=== PATIENT | female | born 1970 | race Caucasian/White ===

== ENCOUNTER 2017-05-29 19:47 | Emergency (ER) | payer OTHER ==
[~2017-05-29] VITALS: Ht 167.6 cm; Wt 59.0 kg
[~2017-05-29 19:47] MED LIST: ? ANTIDEPRESSANT; AZITHROMYCIN 2250 MG PO; BENADRYL25 MG PO; CELEXA 20 MG TA20 M1 PO; CELEXA20 MG PO; CELEXA40 MG; CIPROFLOXIN HC2.5 M1 OPHTHALMIC; FLEXERIL PO; HYDROCODON-ACE1 EAC7 PO; HYDROCODONE-AP1 EAC6 PO; HYDROXYZINE HCL25 M2 GT; HYDROXYZINE HCL25 M2 PO; KEFLEX500 MG PO; LORTABELXR PO; MEDROLDOSEPACK PO; MOBIC7.5 M1 PO; NAPROSYN500 MG PO; NOHOMEMEDICATIONS; NORCO 5-325 TA1 EACH PO; PENICILLIN V P500 MG PO; PEPCID AC20 M1 PO; PERCOCET 5-3251 EACH PO; PREDNISONE 20 M20 M1 PO; PROMETHAZINE D480 ML PO; PROMETHAZINE-C120 ML PO; ROBAXIN 750 MG750 M1 PO; ROBAXIN500 MG PO; TESSALON PERLE100 MG PO; TRAMADOL; TRAMADOL 50 MG50 MG PO; ULTRAM50 MG PO; VALIUM5 MG; VEETIDS 500500 MG PO; VENTOLIN HFA 1818 GM INH; VICOPROFEN 2001 EACH PO; XANAX XR2 MG; XANAX XR2 MG PO; XANAX1 MG PO; ZPAK PO
[2017-05-29] MEDS ORDERED: CELEXA20 MG (20:05)
[2017-05-29 20:22] LABS: ABSOLUTE BASOPHILS 0.1 thou/uL (0.0-0.2); ABSOLUTE EOSINOPHILS 0.2 thou/uL (0.0-0.7); ABSOLUTE LYMPHOCYTES 2.6 thou/uL (0.8-5.3); ABSOLUTE MONOCYTES 0.4 thou/uL (0.0-1.2); ABSOLUTE NEUTROPHILS 3.2 thou/uL (1.6-8.1); BASOPHILS 0.9 %; EOSINOPHILS 2.5 %; HEMATOCRIT 36.8 % (37.0-47.0); HEMOGLOBIN 12.1 gm/dL (12.0-15.0); LYMPHOCYTES 39.8 %; MCHC 32.8 g/dL (28.0-37.0); MCV 88.6 fL (80.0-100.0); MONOCYTES 6.7 %; MPV 9.2 fl. (7.2-11.1); NUCLEATED RBCS 0 /100WBC; PLATELET COUNT* 193 thou/uL (150-400); POLYS 50.1 %; RBC 4.15 mil/uL (4.20-5.00); RDW-CV 13.7 % (10.5-14.5); WBC 6.5 thou/uL (4.0-11.0)
[2017-05-29 20:30] LABS: CALCIUM 8.1 mg/dL (8.5-10.1); POTASSIUM 3.9 mmol/L (3.5-5.1)
[2017-05-29 20:38] LABS: ALBUMIN 3.7 g/dL (3.4-5.0); TOTAL BILIRUBIN 0.3 mg/dL (<0.1-1.0)
[2017-05-29 20:41] LABS: URINE BILIRUBIN NEGATIVE (Negative); URINE BLOOD 3+ (Negative); URINE CLARITY CLEAR; URINE COLOR YELLOW; URINE GLUCOSE-RANDOM NEGATIVE (Negative); URINE KETONES NEGATIVE (Negative); URINE LEUKOCYTES-REFLEX NEGATIVE (Negative); URINE NITRITE-REFLEX NEGATIVE (Negative); URINE PROTEIN NEGATIVE (Negative); URINE SPECIFIC GRAVITY <= 1.005 (1.005-1.030); URINE UROBILINOGEN 0.2 E.U./dl (0.2-1.0)
[2017-05-29 20:53] LABS: BACTERIA-REFLEX None Seen /HPF (None Seen); CASTS None Seen /LPF (None Seen); CRYSTALS None Seen /LPF (None Seen); SQUAMOUS 0-3 Few /LPF (0-3); URINE RBC 0-2 Rare /HPF (0-2); URINE WBC-REFLEX None Seen /HPF (0-5)
[2017-05-29 21:11] VITALS: BP 98/48
== END 2017-05-29 21:12 | disposition home or self-care (01) ==
LOC: M.ERS 19:47
PROVIDERS: Nurse Practitioner Family
DX: N93.8 Other specified abnormal uterine and vaginal bleeding (principal); J02.9 Acute pharyngitis, unspecified; F32.9 Major depressive disorder, single episode, unspecified; F17.210 Nicotine dependence, cigarettes, uncomplicated; Z98.890 Other specified postprocedural states

== ENCOUNTER 2017-06-02 23:00 | Emergency (ER) | payer OTHER ==
[~2017-06-02] VITALS: Ht 170.2 cm; Wt 59.0 kg
[~2017-06-02 23:00] MED LIST changes: +CELEXA20 MG
[2017-06-02 23:32] LABS: ABSOLUTE EOSINOPHILS 0.2 thou/uL (0.0-0.7); ABSOLUTE LYMPHOCYTES 2.5 thou/uL (0.8-5.3); ABSOLUTE MONOCYTES 0.5 thou/uL (0.0-1.2); ABSOLUTE NEUTROPHILS 2.8 thou/uL (1.6-8.1); BASOPHILS 0.7 %; EOSINOPHILS 2.6 %; HEMATOCRIT 35.7 % (37.0-47.0); LYMPHOCYTES 41.7 %; MCH 29.9 pg (26.0-34.0); MCHC 33.7 g/dL (28.0-37.0); MCV 88.7 fL (80.0-100.0); MONOCYTES 8.1 %; NUCLEATED RBCS 0 /100WBC; PLATELET COUNT* 183 thou/uL (150-400); POLYS 46.9 %; RBC 4.02 mil/uL (4.20-5.00); RDW-CV 13.8 % (10.5-14.5)
[2017-06-02 23:52] LABS: INR 1.1; PROTIME 10.3 Seconds (9.20-11.50)
[2017-06-02 23:52] LABS: URINE BILIRUBIN NEGATIVE (Negative); URINE BLOOD 3+ (Negative); URINE CLARITY CLOUDY; URINE COLOR RED; URINE GLUCOSE-RANDOM NEGATIVE (Negative); URINE KETONES TRACE (Negative); URINE LEUKOCYTES NEGATIVE (Negative); URINE NITRITE NEGATIVE (Negative); URINE PROTEIN TRACE (Negative); URINE SPECIFIC GRAVITY 1.015 (1.005-1.030)
[2017-06-03 00:06] LABS: CREATININE 0.9 mg/dL (0.6-1.3); POTASSIUM 3.7 mmol/L (3.5-5.1)
[2017-06-03 00:10] LABS: CASTS None Seen /LPF (None Seen); SQUAMOUS 0-3 Few /LPF (0-3)
[2017-06-03 00:11] LABS: URINE RBC >20 Many /HPF (0-2); URINE WBC 6-15 Few /HPF (0-5)
[2017-06-03 00:11] LABS: ALBUMIN 3.6 g/dL (3.4-5.0); TOTAL BILIRUBIN 0.2 mg/dL (<0.1-1.0)
[2017-06-03 00:12] LABS: BACTERIA 1-9 Few /HPF (None Seen); CRYSTALS None Seen /LPF (None Seen)
[2017-06-03] MEDS ORDERED: DESOGESTR-ETH1 EACH PO (00:29)
[2017-06-03 01:00] VITALS: BP 99/50
== END 2017-06-03 01:00 | disposition home or self-care (01) ==
LOC: M.ERS 23:00
PROVIDERS: Physician Assistant
DX: N93.8 Other specified abnormal uterine and vaginal bleeding (principal); F32.9 Major depressive disorder, single episode, unspecified; G89.29 Other chronic pain; F17.210 Nicotine dependence, cigarettes, uncomplicated; Z98.890 Other specified postprocedural states

== ENCOUNTER 2018-06-10 09:17 | Emergency (ER) | payer OTHER ==
[~2018-06-10] VITALS: Ht 170.2 cm; Wt 68.0 kg
[~2018-06-10 09:17] MED LIST changes: +DESOGESTR-ETH1 EACH PO
[2018-06-10] MEDS ORDERED: NORCO 5-325 TA1 EACH PO (10:03)
[2018-06-10] MEDS ORDERED: AUGMENTIN 500-1 EACH PO (10:03)
[2018-06-10 10:10] VITALS: BP 123/84
== END 2018-06-10 10:11 | disposition home or self-care (01) ==
LOC: M.ERS 09:17
DX: K11.8 Other diseases of salivary glands (principal); F17.210 Nicotine dependence, cigarettes, uncomplicated; F32.9 Major depressive disorder, single episode, unspecified; Z98.890 Other specified postprocedural states